=== PATIENT | female | born 1955 | race Caucasian/White ===

== ENCOUNTER 2019-06-14 08:56 | Inpatient (IN) ==
[2019-06-14] MEDS ORDERED: *HR* Promethazine 25 MG/ML VIAL IVP PRN (09:30)
[2019-06-14] MEDS ORDERED: diazePAM 5 MG TABLET PO ONE (09:30)
[2019-06-14] MEDS ORDERED: Famotidine 20 MG/2 ML VIAL IVP ONE (09:30)
[2019-06-14] MEDS ORDERED: *HR* FentaNYL (PF) 100 MCG/2 ML VIAL IVP PRN (09:30)
[2019-06-14] MEDS ORDERED: *HR* OxyCODONE Immed Rel 5 MG TABLET PO PRN ×2 (09:30→17:39)
[2019-06-14] MEDS ORDERED: *HR* HYDROmorphone (PF) 1 MG/ML SYRINGE IVP PRN (09:30)
[2019-06-14] MEDS ORDERED: Ondansetron ODT 4 MG TAB.RAPDIS SL ONE (09:30)
[2019-06-14] MEDS ORDERED: *HR* Midazolam HCl 2 MG/2 ML VIAL IVP PRN (09:30)
[2019-06-14] MEDS ORDERED: *HR* Meperidine 25 MG/ML SYRINGE IVP PRN (09:30)
[2019-06-14] MEDS ORDERED: Acetaminophen IV 500 MG/50 ML INFUS..BTL IVPB ONE (09:33)
[2019-06-14] MEDS ORDERED: CeFAZolin Syr 2,000MG/20 ML 2,000 MG/20 ML SYRINGE IVPB ONE (10:19)
[2019-06-14] MEDS ORDERED: MetroNIDAZOLE 500 MG/100 ML 500 MG/100 ML BAG IVPB ONE (10:20)
[2019-06-14] MEDS ORDERED: *HR* Succinylcholine 200 MG/10 ML VIAL IVP ONE (10:27)
[2019-06-14] MEDS ORDERED: Ondansetron 4 MG/2 ML VIAL ONE (10:27)
[2019-06-14] MEDS ORDERED: Lidocaine -MPF 2% 2 ML VIAL ONE (10:27)
[2019-06-14] MEDS ORDERED: Dexamethasone 4 MG/ML VIAL ONE (10:27)
[2019-06-14] MEDS ORDERED: *HR* Rocuronium Bromide 50 MG/5 ML VIAL ONE ×3 (10:27→15:45)
[2019-06-14] MEDS ORDERED: *HR* FentaNYL (PF) 100 MCG/2 ML VIAL ONE ×2 (10:28→12:07)
[2019-06-14] MEDS ORDERED: *HR* Propofol 200 MG/20 ML VIAL IVP ONE (10:28)
[2019-06-14] MEDS ORDERED: Ringers Solution, Lactated 1,000 ML IVC SCH (10:30)
[2019-06-14] MEDS ORDERED: Isovue-300 50ML VIAL ONE (11:07)
[2019-06-14] MEDS ORDERED: Naloxone 0.4 MG/ML INJ IVP PRN (17:39)
[2019-06-14] MEDS ORDERED: Ondansetron 4 MG/2 ML VIAL IVP PRN (17:39)
[2019-06-14] MEDS: traMADol 50 MG TABLET PO PRN (18:55)
[2019-06-14] MEDS: D5% in 0.45% NACL 1,000 ML IVC SCH (18:58)
[2019-06-15] MEDS: traMADol 50 MG TABLET PO PRN (04:44)
[2019-06-15] MEDS: D5% in 0.45% NACL 1,000 ML IVC SCH (21:01)
[2019-06-15] MEDS: *HR* Heparin 5,000 UNIT/ML VIAL SQ SCH (21:12)
[2019-06-16] MEDS: *HR* Heparin 5,000 UNIT/ML VIAL SQ SCH ×4 (00:07→17:08)
[2019-06-16] MEDS: traMADol 50 MG TABLET PO PRN (09:36)
[2019-06-17] MEDS: *HR* Heparin 5,000 UNIT/ML VIAL SQ SCH ×2 (00:20→08:59)
[2019-06-17 05:12] VITALS: BP 130/62
== END 2019-06-17 14:39 | disposition home or self-care (01) | DRG 330 ==
LOC: SAMDAY 08:56 → 3ANU 17:37
PROVIDERS: ADMIT Surgery; ATTEND Surgery

== ENCOUNTER 2019-09-25 14:29 | Inpatient (IN) ==
[2019-09-25] MEDS ORDERED: 0.9 % Sodium Chloride 1,000 ML IVC ONE (15:23)
[2019-09-25 15:58] LABS: Hematocrit 41.9 % (35.3-44.9); Hemoglobin 14.6 g/dL (11.5-15.4); Mean Corpuscular HGB Conc 34.8 g/dL (31.6-35.5); Mean Corpuscular Hemoglobin 27.4 pg (28.0-33.3); Mean Corpuscular Volume 78.6 fL (83.0-100.0); Mean Platelet Volume 9.2 fL (9.4-12.4); Platelet Count 235 K/mcL (140-400); Red Blood Count 5.33 M/mcL (3.82-4.97); Red Cell Distribution Width 15.3 % (11.5-14.5)
[2019-09-25 16:17] LABS: Alanine Aminotransferase 37 Units/L (7-52); Albumin 2.9 g/dL (3.5-5.7); Albumin/Globulin Ratio 1.1 (1.1-2.2); Alkaline Phosphatase 61 Units/L (34-104); Aspartate Amino Transferase 31 Units/L (13-39); BUN/Creatinine Ratio 27 (6-26); Bilirubin,Direct 0.2 mg/dL (0.0-0.2); Bilirubin,Indirect 0.5 mg/dL (0.0-1.0); Bilirubin,Total 0.7 mg/dL (0.3-1.0); Blood Urea Nitrogen 23 mg/dL (8-23); Calcium 8.7 mg/dL (8.6-10.3); Carbon Dioxide 21 mEq/L (23-29); Chloride 103 mEq/L (98-107); Globulin 2.6 g/dL (2.4-3.5); Glucose 176 mg/dL (70-105); Lipase 12 Units/L (11-82); Osmolality,Calculated 284 (280-300); Potassium 2.7 mEq/L (3.5-5.1); Sodium 133 mEq/L (136-145); Total Protein 5.5 g/dL (6.4-8.9); eGFR For African Americans > 60 (> 60); eGFR For Non-African Americans > 60 (> 60)
[2019-09-25] MEDS ORDERED: Piperacillin/Tazobactam 3.375 GM in 0.9 % Sodium Chloride Mini Bag 100 ML IVPB ONE ×2 (16:28→16:51)
[2019-09-25 16:35] LABS: Bacteria,Urine None Seen per hpf (None-Few); Bilirubin,Urine Negative (Negative); Blood,Urine Negative (Negative); Clarity,Urine Clear (Clear); Color,Urine Dark Yellow (Yellow); Glucose,Urine (UA) Normal (Normal); Hyaline Casts,Urine Few per lpf (None-Few); Ketones,Urine Negative (Negative); Leukocyte Esterase,Urine Negative (Negative); Nitrite,Urine Negative (Negative); Protein,Urine 30 mg/dL (Neg-Trace); Specific Gravity,Urine 1.026 (1.010-1.025); Squamous Epithelial Cell,Urine Many per lpf (None-Few); Urobilinogen,Urine Normal (Normal)
[2019-09-25] MEDS ORDERED: *HR* Propofol 200 MG/20 ML VIAL IVP ONE (17:14)
[2019-09-25] MEDS ORDERED: *HR* FentaNYL (PF) 100 MCG/2 ML VIAL ONE (17:14)
[2019-09-25] MEDS ORDERED: *HR* Succinylcholine 200 MG/10 ML VIAL IVP ONE (17:15)
[2019-09-25] MEDS ORDERED: *HR* Rocuronium Bromide 50 MG/5 ML VIAL ONE (17:15)
[2019-09-25] MEDS ORDERED: Lidocaine -MPF 2% 2 ML VIAL ONE (17:15)
[2019-09-25] MEDS ORDERED: *HR* OxyCODONE Immed Rel 5 MG TABLET PO PRN (17:27)
[2019-09-25] MEDS ORDERED: Ondansetron 4 MG/2 ML VIAL IVP ONE (17:27)
[2019-09-25] MEDS ORDERED: *HR* HYDROmorphone (PF) 1 MG/ML SYRINGE IVP PRN (17:27)
[2019-09-25] MEDS ORDERED: Acetaminophen IV 0 MG/0 ML INFUS..BTL ONE (17:47)
[2019-09-25] MEDS ORDERED: Naloxone 0.4 MG/ML INJ IVP PRN (18:30)
[2019-09-25] MEDS: D5% in 0.45% NACL w KCl 20 MEQ/1,000 ML MLS IVC SCH (19:49)
[2019-09-26] MEDS: D5% in 0.45% NACL w KCl 20 MEQ/1,000 ML MLS IVC SCH ×2 (04:40→23:40)
[2019-09-26 05:43] LABS: Basophils # 0.1 K/mcL (0.0-0.2); Basophils % 0.6 %; Eosinophils # 0.4 K/mcL (0.0-0.6); Hematocrit 37.4 % (35.3-44.9); Hemoglobin 13.1 g/dL (11.5-15.4); Immature Granulocytes % 0.4 % (0-4); Lymphocytes % 24.2 %; Mean Corpuscular Hemoglobin 27.7 pg (28.0-33.3); Mean Corpuscular Volume 79.1 fL (83.0-100.0); Mean Platelet Volume 8.5 fL (9.4-12.4); Monocytes # 0.7 K/mcL (0.0-1.3); Monocytes % 8.5 %; Neutrophils # 5.1 K/mcL (1.6-8.9); Platelet Count 197 K/mcL (140-400); Red Blood Count 4.73 M/mcL (3.82-4.97); Red Cell Distribution Width 15.4 % (11.5-14.5); Segmented Neutrophils % 61.3 %; White Blood Count 8.4 K/mcL (4.3-11.1)
[2019-09-26 06:00] LABS: BUN/Creatinine Ratio 25 (6-26); Blood Urea Nitrogen 18 mg/dL (8-23); Carbon Dioxide 20 mEq/L (23-29); Chloride 104 mEq/L (98-107); Glucose 188 mg/dL (70-105); Magnesium 1.5 mg/dL (1.6-2.6); Osmolality,Calculated 285 (280-300); Phosphorous 2.3 mg/dL (2.7-4.5); Potassium 2.6 mEq/L (3.5-5.1); Sodium 134 mEq/L (136-145); eGFR For African Americans > 60 (> 60); eGFR For Non-African Americans > 60 (> 60)
[2019-09-26] MEDS ORDERED: *HR* Propofol 200 MG/20 ML VIAL IVP ONE (10:00)
[2019-09-26] MEDS ORDERED: Lidocaine -MPF 2% 2 ML VIAL ONE (10:02)
[2019-09-26] MEDS: Fluconazole 100 MG TABLET PO SCH (14:14)
[2019-09-26] MEDS: Sucralfate 1 GM TABLET PO SCH ×3 (14:15→21:04)
[2019-09-26] MEDS: Nystatin SUSP 5 ML UD.LIQ PO SCH ×3 (14:16→21:04)
[2019-09-26] MEDS ORDERED: Potassium Chloride 40 MEQ, Lidocaine 1% 2 ML in 0.9 % Sodium Chloride 500 ML IVPB ONE (15:33)
[2019-09-27] MEDS: D5% in 0.45% NACL w KCl 20 MEQ/1,000 ML MLS IVC SCH (00:51)
[2019-09-27] MEDS ORDERED: Potassium Chloride 40 MEQ, Lidocaine 1% 2 ML in 0.9 % Sodium Chloride 500 ML IVPB ONE (07:08)
[2019-09-27] MEDS ORDERED: Potassium Chloride Elixir 20 MEQ/15 ML UDC PO ONE (07:08)
[2019-09-27 08:34] LABS: BUN/Creatinine Ratio 13 (6-26); Blood Urea Nitrogen 8 mg/dL (8-23); Calcium 8.1 mg/dL (8.6-10.3); Carbon Dioxide 21 mEq/L (23-29); Chloride 106 mEq/L (98-107); Glucose 151 mg/dL (70-105); Osmolality,Calculated 283 (280-300); Potassium 3.5 mEq/L (3.5-5.1); Sodium 136 mEq/L (136-145); eGFR For African Americans > 60 (> 60); eGFR For Non-African Americans > 60 (> 60)
[2019-09-27] MEDS: Ondansetron 4 MG/2 ML VIAL IVP PRN (10:37)
[2019-09-27] MEDS: Sucralfate 1 GM TABLET PO SCH (10:42)
[2019-09-27] MEDS: Nystatin SUSP 5 ML UD.LIQ PO SCH ×4 (11:22→21:43)
[2019-09-27] MEDS: Fluconazole 100 MG TABLET PO SCH (11:23)
[2019-09-28] MEDS: Fluconazole 100 MG TABLET PO SCH (10:24)
[2019-09-28] MEDS: Nystatin SUSP 5 ML UD.LIQ PO SCH ×4 (10:24→21:11)
[2019-09-29] MEDS: Ondansetron 4 MG/2 ML VIAL IVP PRN (01:50)
[2019-09-29] MEDS: Nystatin SUSP 5 ML UD.LIQ PO SCH ×4 (10:17→21:51)
[2019-09-29] MEDS: Fluconazole 100 MG TABLET PO SCH (10:17)
[2019-09-30] MEDS: Fluconazole 100 MG TABLET PO SCH (08:05)
[2019-09-30] MEDS: Nystatin SUSP 5 ML UD.LIQ PO SCH ×4 (08:05→21:11)
[2019-10-01 07:32] VITALS: BP 137/90
[2019-10-01] MEDS: Ondansetron 4 MG/2 ML VIAL IVP PRN (10:01)
[2019-10-01] MEDS: Fluconazole 100 MG TABLET PO SCH (10:03)
[2019-10-01] MEDS: Nystatin SUSP 5 ML UD.LIQ PO SCH (10:04)
[2019-10-01] MEDS ORDERED: Ondansetron ODT 4 MG TAB.RAPDIS SL PRN (10:11)
[2019-10-01] MEDS ORDERED: Scopolamine Patch 1.5 MG PATCH.TD72 TD SCH (10:15)
== END 2019-10-01 14:17 | disposition home health service (06) | DRG 368 ==
LOC: EMEROOARM 14:29 → 3ANU 17:04
PROVIDERS: ADMIT Surgery; ATTEND Surgery
PROC: ENDOEBX (2019-09-26 10:00)

== ENCOUNTER 2019-10-02 18:39 | Inpatient (IN) ==
[2019-10-02] MEDS ORDERED: Naloxone 0.4 MG/ML INJ IVP PRN (22:11)
[2019-10-02] MEDS ORDERED: Ondansetron 4 MG/2 ML VIAL IVP PRN (22:11)
[2019-10-02] MEDS ORDERED: Potassium Chloride 40 MEQ in D5% in 0.9% NACL 1,000 ML IVC SCH (22:15)
[2019-10-02 22:51] LABS: Basophils % 0.1 %; Eosinophils % 0.3 %; Hematocrit 46.3 % (35.3-44.9); Immature Granulocytes % 12.5 % (0-4); Lymphocytes # 1.7 K/mcL (0.6-4.6); Lymphocytes % 15.4 %; Mean Corpuscular HGB Conc 34.8 g/dL (31.6-35.5); Mean Corpuscular Volume 77.6 fL (83.0-100.0); Neutrophils # 5.9 K/mcL (1.6-8.9); Nucleated Red Blood Cells 0.5 /100 WBC (0); Platelet Count 337 K/mcL (140-400); Red Blood Count 5.97 M/mcL (3.82-4.97); Segmented Neutrophils % 53.7 %
[2019-10-02 22:51] LABS: VBG Ionized Calcium 1.56 mmol/L (1.15-1.35)
[2019-10-02 22:55] LABS: Hemoglobin 16.1 g/dL (11.5-15.4)
[2019-10-02] MEDS: Potassium Chloride 40 MEQ in D5% in 0.9% NACL 1,000 ML IVC SCH (23:03)
[2019-10-02] MEDS ORDERED: 0.9 % Sodium Chloride 1,000 ML IVC ONE (23:13)
[2019-10-02 23:22] LABS: Troponin I 0.04 ng/mL (< 0.04)
[2019-10-02 23:27] LABS: Platelet Estimate Normal (Normal)
[2019-10-03] MEDS ORDERED: Fluconazole 100 MG TABLET PO SCH (00:30)
[2019-10-03] MEDS ORDERED: Nystatin SUSP 5 ML UD.LIQ PO SCH (00:30)
[2019-10-03 02:14] LABS: Bilirubin,Urine Negative (Negative); Blood,Urine Negative (Negative); Clarity,Urine Cloudy (Clear); Color,Urine Yellow (Yellow); Glucose,Urine (UA) Normal (Normal); Ketones,Urine Negative (Negative); Leukocyte Esterase,Urine Negative (Negative); Nitrite,Urine Negative (Negative); Protein,Urine 30 mg/dL (Neg-Trace); Specific Gravity,Urine 1.022 (1.010-1.025); Urobilinogen,Urine Normal (Normal)
[2019-10-03 02:16] LABS: Hyaline Casts,Urine Few per lpf (None-Few); RBC,Urine 0-3 per hpf (0-3); Squamous Epithelial Cell,Urine Many per lpf (None-Few)
[2019-10-03 02:24] LABS: Basophils % 0.1 %; Eosinophils % 0.2 %; Hematocrit 41.6 % (35.3-44.9); Hemoglobin 14.6 g/dL (11.5-15.4); Immature Granulocytes % 11.7 % (0-4); Lymphocytes # 1.7 K/mcL (0.6-4.6); Lymphocytes % 13.8 %; Mean Corpuscular HGB Conc 35.1 g/dL (31.6-35.5); Mean Corpuscular Hemoglobin 27.5 pg (28.0-33.3); Mean Corpuscular Volume 78.3 fL (83.0-100.0); Monocytes # 2.1 K/mcL (0.0-1.3); Monocytes % 16.9 %; Nucleated Red Blood Cells 0.4 /100 WBC (0); Platelet Count 301 K/mcL (140-400); Red Blood Count 5.31 M/mcL (3.82-4.97); Red Cell Distribution Width 16.6 % (11.5-14.5); Segmented Neutrophils % 57.3 %; White Blood Count 12.6 K/mcL (4.3-11.1)
[2019-10-03 02:26] LABS: Neutrophils # 7.2 K/mcL (1.6-8.9)
[2019-10-03 02:32] LABS: Bacteria,Urine Few per hpf (None-Few)
[2019-10-03] MEDS: Fluconazole 200 MG/100 ML 200 MG/100 ML BAG IVPB SCH (02:34)
[2019-10-03 02:43] LABS: Albumin 2.4 g/dL (3.5-5.7); Albumin/Globulin Ratio 0.8 (1.1-2.2); Bilirubin,Total 0.4 mg/dL (0.3-1.0); Calcium 10.2 mg/dL (8.6-10.3); Magnesium 2.5 mg/dL (1.6-2.6); Phosphorous 2.6 mg/dL (2.7-4.5); Potassium 2.3 mEq/L (3.5-5.1); Total Protein 5.4 g/dL (6.4-8.9); Troponin I 0.05 ng/mL (< 0.04)
[2019-10-03 03:52] LABS: Platelet Estimate Normal (Normal)
[2019-10-03 04:56] LABS: Albumin 2.1 g/dL (3.5-5.7); Albumin/Globulin Ratio 0.8 (1.1-2.2); Bilirubin,Total 0.3 mg/dL (0.3-1.0); Calcium 9.6 mg/dL (8.6-10.3); Globulin 2.6 g/dL (2.4-3.5); Potassium 2.4 mEq/L (3.5-5.1); Total Protein 4.7 g/dL (6.4-8.9)
[2019-10-03] MEDS: *HR* Heparin 5,000 UNIT/ML VIAL SQ SCH ×3 (06:30→21:23)
[2019-10-03] MEDS: Piperacillin/Tazobactam 3.375 GM in 0.9 % Sodium Chloride Mini Bag 100 ML IVPB SCH ×2 (08:03→16:44)
[2019-10-03] MEDS ORDERED: Potassium Phosphate 44 MEQ in 0.9 % Sodium Chloride 250 ML IVPB ONE (09:45)
[2019-10-03] MEDS: Potassium Chloride 40 MEQ in D5% in 0.9% NACL 1,000 ML IVC SCH ×2 (10:39→21:22)
[2019-10-03] MEDS ORDERED: Haloperidol Lactate 5 MG/ML VIAL IVP PRN (11:09)
[2019-10-03] MEDS ORDERED: Saliva Stimulant 100ml BOTTLE PO PRN (11:11)
[2019-10-03] MEDS: Pantoprazole 40 MG VIAL IVP SCH (14:49)
[2019-10-03] MEDS: Nystatin SUSP 5 ML UD.LIQ PO SCH ×3 (14:50→21:24)
[2019-10-03 16:39] LABS: Calcium 9.1 mg/dL (8.6-10.3); Phosphorous 3.2 mg/dL (2.7-4.5)
[2019-10-04] MEDS: Fluconazole 200 MG/100 ML 200 MG/100 ML BAG IVPB SCH ×2 (00:36→23:57)
[2019-10-04] MEDS: Piperacillin/Tazobactam 3.375 GM in 0.9 % Sodium Chloride Mini Bag 100 ML IVPB SCH ×4 (00:38→23:57)
[2019-10-04 04:12] LABS: Hematocrit 34.5 % (35.3-44.9); Mean Corpuscular HGB Conc 33.3 g/dL (31.6-35.5); Mean Corpuscular Hemoglobin 27.7 pg (28.0-33.3); Mean Corpuscular Volume 83.1 fL (83.0-100.0); Mean Platelet Volume 9.2 fL (9.4-12.4); Nucleated Red Blood Cells 0.1 /100 WBC (0); Platelet Count 236 K/mcL (140-400); Red Blood Count 4.15 M/mcL (3.82-4.97); Red Cell Distribution Width 17.4 % (11.5-14.5); White Blood Count 16.2 K/mcL (4.3-11.1)
[2019-10-04 04:15] LABS: Hemoglobin 11.5 g/dL (11.5-15.4)
[2019-10-04 04:34] LABS: Calcium 9.4 mg/dL (8.6-10.3); Magnesium 2.1 mg/dL (1.6-2.6); Phosphorous 2.1 mg/dL (2.7-4.5); Potassium 2.9 mEq/L (3.5-5.1)
[2019-10-04 04:42] LABS: Lymphocytes # 2.6 K/mcL (0.6-4.6); Monocytes # 0.3 K/mcL (0.0-1.3); Neutrophils # 12.6 K/mcL (1.6-8.9)
[2019-10-04 04:43] LABS: Platelet Estimate Normal (Normal); Smudge Cells Present (Not Present)
[2019-10-04] MEDS: *HR* Heparin 5,000 UNIT/ML VIAL SQ SCH ×3 (06:38→20:47)
[2019-10-04] MEDS ORDERED: Potassium Chloride Elixir 20 MEQ/15 ML UDC PO SCH (09:00)
[2019-10-04] MEDS: Nystatin SUSP 5 ML UD.LIQ PO SCH ×4 (10:46→20:30)
[2019-10-04] MEDS: Potassium Chloride 40 MEQ in D5% in 0.9% NACL 1,000 ML IVC SCH (10:46)
[2019-10-04] MEDS: Pantoprazole 40 MG VIAL IVP SCH (10:46)
[2019-10-04] MEDS: Potassium Phosphate 44 MEQ in 0.9 % Sodium Chloride 250 ML IVPB ONE ×2 (10:48→14:56)
[2019-10-04] MEDS ORDERED: Potassium Chloride 20 MEQ, Lidocaine 1% 2 ML in 0.9 % Sodium Chloride 250 ML IVPB ONE (12:00)
[2019-10-04] MEDS: Insulin LISPRO 300 UNITS/3 ML VIAL SQ SCH ×4 (12:05→23:58)
[2019-10-04] MEDS ORDERED: D10% in Water 500 ML IVC PRN (13:09)
[2019-10-04 15:45] LABS: Magnesium 1.9 mg/dL (1.6-2.6); Phosphorous 3.8 mg/dL (2.7-4.5); Potassium 3.5 mEq/L (3.5-5.1)
[2019-10-04] MEDS ORDERED: Insulin LISPRO 300 UNITS/3 ML VIAL SQ SCH (16:00)
[2019-10-04] MEDS: Thiamine (B-1) 100 MG in 0.9 % Sodium Chloride 50 ML IVPB SCH (16:56)
[2019-10-04] MEDS ORDERED: Clinimix E 5%-15% SOLUTION 2,000 ML with MVI, adult with vitamin K 10 ML IVC SCH (17:00)
[2019-10-05] MEDS: Potassium Chloride 40 MEQ in D5% in 0.9% NACL 1,000 ML IVC SCH ×3 (02:51→13:03)
[2019-10-05] MEDS: Insulin LISPRO 300 UNITS/3 ML VIAL SQ SCH ×5 (04:15→21:46)
[2019-10-05 04:48] LABS: Basophils % 0.1 %; Eosinophils # 0.7 K/mcL (0.0-0.6); Eosinophils % 3.9 %; Hematocrit 32.5 % (35.3-44.9); Hemoglobin 10.7 g/dL (11.5-15.4); Immature Granulocytes % 20.1 % (0-4); Lymphocytes % 17.1 %; Mean Corpuscular HGB Conc 32.9 g/dL (31.6-35.5); Mean Corpuscular Hemoglobin 26.8 pg (28.0-33.3); Mean Corpuscular Volume 81.5 fL (83.0-100.0); Mean Platelet Volume 9.1 fL (9.4-12.4); Monocytes # 1.6 K/mcL (0.0-1.3); Neutrophils # 8.7 K/mcL (1.6-8.9); Nucleated Red Blood Cells 0.1 /100 WBC (0); Platelet Count 221 K/mcL (140-400); Red Blood Count 3.99 M/mcL (3.82-4.97); Red Cell Distribution Width 18.3 % (11.5-14.5); Segmented Neutrophils % 49.8 %; White Blood Count 17.5 K/mcL (4.3-11.1)
[2019-10-05 05:03] LABS: Calcium 8.5 mg/dL (8.6-10.3); Potassium 3.4 mEq/L (3.5-5.1)
[2019-10-05] MEDS: *HR* Heparin 5,000 UNIT/ML VIAL SQ SCH ×3 (05:17→21:41)
[2019-10-05 05:21] LABS: Platelet Estimate Normal (Normal); Reactive Lymphocytes Present (Not Present)
[2019-10-05] MEDS: Pantoprazole 40 MG VIAL IVP SCH (09:24)
[2019-10-05] MEDS: Nystatin SUSP 5 ML UD.LIQ PO SCH ×4 (09:24→21:41)
[2019-10-05] MEDS: Piperacillin/Tazobactam 3.375 GM in 0.9 % Sodium Chloride Mini Bag 100 ML IVPB SCH ×2 (09:24→16:57)
[2019-10-05] MEDS: Thiamine (B-1) 100 MG in 0.9 % Sodium Chloride 50 ML IVPB SCH (09:26)
[2019-10-05] MEDS ORDERED: Potassium Chloride 40 MEQ, Lidocaine 1% 2 ML in D5% in Water 500 ML IVPB ONE (16:20)
[2019-10-05] MEDS ORDERED: Clinimix E 5%-15% SOLUTION 2,000 ML with MVI, adult with vitamin K 10 ML IVC SCH (17:00)
[2019-10-05] MEDS: Sodium Bicarbonate 150 MEQ in D5% in Water 1,000 ML IVC SCH (17:28)
[2019-10-06] MEDS: Piperacillin/Tazobactam 3.375 GM in 0.9 % Sodium Chloride Mini Bag 100 ML IVPB SCH ×3 (02:47→15:48)
[2019-10-06] MEDS: Fluconazole 200 MG/100 ML 200 MG/100 ML BAG IVPB SCH (02:48)
[2019-10-06] MEDS: Insulin LISPRO 300 UNITS/3 ML VIAL SQ SCH ×6 (04:18→21:56)
[2019-10-06] MEDS: *HR* Heparin 5,000 UNIT/ML VIAL SQ SCH ×3 (06:42→21:54)
[2019-10-06] MEDS: Pantoprazole 40 MG VIAL IVP SCH (08:34)
[2019-10-06] MEDS: Thiamine (B-1) 100 MG in 0.9 % Sodium Chloride 50 ML IVPB SCH (08:35)
[2019-10-06] MEDS: Nystatin SUSP 5 ML UD.LIQ PO SCH ×4 (08:35→21:55)
[2019-10-06 16:38] LABS: BUN/Creatinine Ratio 14 (6-26); Blood Urea Nitrogen 14 mg/dL (8-23); Calcium 8.4 mg/dL (8.6-10.3); Carbon Dioxide 33 mEq/L (23-29); Chloride 101 mEq/L (98-107); Glucose 203 mg/dL (70-105); Magnesium 1.1 mg/dL (1.6-2.6); Osmolality,Calculated 292 (280-300); Phosphorous 2.4 mg/dL (2.7-4.5); Potassium 2.9 mEq/L (3.5-5.1); Sodium 138 mEq/L (136-145); eGFR For African Americans > 60 (> 60); eGFR For Non-African Americans 55 (> 60)
[2019-10-06] MEDS: Sodium Bicarbonate 150 MEQ in D5% in Water 1,000 ML IVC SCH ×2 (16:41→17:00)
[2019-10-06] MEDS ORDERED: Clinimix E 5%-15% SOLUTION 2,000 ML with MVI, adult with vitamin K 10 ML IVC SCH (17:00)
[2019-10-06] MEDS ORDERED: Potassium Chloride 40 MEQ, Lidocaine 1% 2 ML in D5% in Water 500 ML IVPB ONE (17:27)
[2019-10-07] MEDS: Piperacillin/Tazobactam 3.375 GM in 0.9 % Sodium Chloride Mini Bag 100 ML IVPB SCH ×3 (01:41→16:10)
[2019-10-07] MEDS: Fluconazole 200 MG/100 ML 200 MG/100 ML BAG IVPB SCH (01:42)
[2019-10-07] MEDS: Insulin LISPRO 300 UNITS/3 ML VIAL SQ SCH ×6 (01:44→21:13)
[2019-10-07 06:55] LABS: BUN/Creatinine Ratio 14 (6-26); Blood Urea Nitrogen 14 mg/dL (8-23); Calcium 8.4 mg/dL (8.6-10.3); Carbon Dioxide 40 mEq/L (23-29); Chloride 95 mEq/L (98-107); Glucose 97 mg/dL (70-105); Magnesium 1.6 mg/dL (1.6-2.6); Osmolality,Calculated 292 (280-300); Phosphorous 2.9 mg/dL (2.7-4.5); Potassium 3.1 mEq/L (3.5-5.1); Sodium 141 mEq/L (136-145); eGFR For African Americans > 60 (> 60); eGFR For Non-African Americans 55 (> 60)
[2019-10-07] MEDS: *HR* Heparin 5,000 UNIT/ML VIAL SQ SCH ×3 (08:26→21:14)
[2019-10-07] MEDS: Nystatin SUSP 5 ML UD.LIQ PO SCH ×4 (08:32→21:14)
[2019-10-07] MEDS: Pantoprazole 40 MG VIAL IVP SCH (08:32)
[2019-10-07] MEDS ORDERED: D10% in Water 500 ML IVC PRN (11:44)
[2019-10-07 12:50] LABS: Magnesium 2.6 mg/dL (1.6-2.6); Phosphorous 4.8 mg/dL (2.7-4.5); Potassium 4.3 mEq/L (3.5-5.1)
[2019-10-07 15:34] LABS: BUN/Creatinine Ratio 14 (6-26); Blood Urea Nitrogen 14 mg/dL (8-23); Calcium 8.7 mg/dL (8.6-10.3); Carbon Dioxide 37 mEq/L (23-29); Chloride 91 mEq/L (98-107); Glucose 235 mg/dL (70-105); Magnesium 2.1 mg/dL (1.6-2.6); Osmolality,Calculated 288 (280-300); Potassium 3.4 mEq/L (3.5-5.1); Sodium 135 mEq/L (136-145); eGFR For African Americans > 60 (> 60); eGFR For Non-African Americans 54 (> 60)
[2019-10-07] MEDS ORDERED: Clinimix E 5%-15% SOLUTION 2,000 ML with MVI, adult with vitamin K 10 ML IVC SCH ×2 (17:00)
[2019-10-08] MEDS: Fluconazole 200 MG/100 ML 200 MG/100 ML BAG IVPB SCH
[2019-10-08] MEDS: Insulin LISPRO 300 UNITS/3 ML VIAL SQ SCH ×6 (01:51→21:13)
[2019-10-08] MEDS: *HR* Heparin 5,000 UNIT/ML VIAL SQ SCH ×3 (06:10→21:11)
[2019-10-08 06:45] LABS: VBG Ionized Calcium 1.19 mmol/L (1.15-1.35)
[2019-10-08 07:09] LABS: Calcium 8.6 mg/dL (8.6-10.3); Magnesium 1.9 mg/dL (1.6-2.6); Phosphorous 3.5 mg/dL (2.7-4.5); Potassium 3.8 mEq/L (3.5-5.1)
[2019-10-08] MEDS: Piperacillin/Tazobactam 3.375 GM in 0.9 % Sodium Chloride Mini Bag 100 ML IVPB SCH ×2 (08:30)
[2019-10-08] MEDS: Nystatin SUSP 5 ML UD.LIQ PO SCH ×4 (08:30→21:12)
[2019-10-08] MEDS: Pantoprazole 40 MG VIAL IVP SCH (08:30)
[2019-10-08] MEDS ORDERED: Potassium Chloride 20 MEQ, Lidocaine 1% 2 ML in 0.9 % Sodium Chloride 250 ML IVPB ONE (10:57)
[2019-10-08] MEDS ORDERED: Clinimix E 5%-15% SOLUTION 2,000 ML with MVI, adult with vitamin K 10 ML IVC SCH (11:12)
[2019-10-09] MEDS ORDERED: MetroNIDAZOLE 500 MG/100 ML 500 MG/100 ML BAG IVPB SCH
[2019-10-09] MEDS: Insulin LISPRO 300 UNITS/3 ML VIAL SQ SCH ×3 (00:43→09:27)
[2019-10-09] MEDS: *HR* Heparin 5,000 UNIT/ML VIAL SQ SCH ×3 (05:54→20:43)
[2019-10-09] MEDS ORDERED: Aminoglycoside Consult 1 EACH MC ONE (08:01)
[2019-10-09 08:18] LABS: Calcium 8.4 mg/dL (8.6-10.3); Magnesium 1.8 mg/dL (1.6-2.6); Phosphorous 3.2 mg/dL (2.7-4.5); Potassium 3.5 mEq/L (3.5-5.1)
[2019-10-09] MEDS: metroNIDAZOLE 500 MG TABLET PO SCH ×3 (09:39→20:43)
[2019-10-09] MEDS: Pantoprazole 40 MG VIAL IVP SCH (09:39)
[2019-10-09] MEDS: Nystatin SUSP 5 ML UD.LIQ PO SCH ×4 (09:39→20:43)
[2019-10-09] MEDS ORDERED: Isovue-370 500 ML BOTTLE IVP ONE (16:46)
[2019-10-09] MEDS ORDERED: Isovue-370 500 ML BOTTLE PO ONE (19:26)
[2019-10-10] MEDS: *HR* Heparin 5,000 UNIT/ML VIAL SQ SCH ×3 (05:36→21:33)
[2019-10-10] MEDS: metroNIDAZOLE 500 MG TABLET PO SCH ×3 (08:53→21:33)
[2019-10-10] MEDS: Nystatin SUSP 5 ML UD.LIQ PO SCH ×4 (08:53→21:33)
[2019-10-10 09:19] LABS: Calcium 8.6 mg/dL (8.6-10.3); Potassium 3.6 mEq/L (3.5-5.1)
[2019-10-10 10:19] LABS: Basophils # 0.1 K/mcL (0.0-0.2); Basophils % 0.7 %; Eosinophils # 0.4 K/mcL (0.0-0.6); Eosinophils % 4.2 %; Hematocrit 33.9 % (35.3-44.9); Hemoglobin 10.6 g/dL (11.5-15.4); Immature Granulocytes % 1.2 % (0-4); Lymphocytes % 18.9 %; Mean Corpuscular HGB Conc 31.3 g/dL (31.6-35.5); Mean Corpuscular Hemoglobin 26.3 pg (28.0-33.3); Mean Corpuscular Volume 84.1 fL (83.0-100.0); Mean Platelet Volume 9.9 fL (9.4-12.4); Monocytes # 1.2 K/mcL (0.0-1.3); Monocytes % 11.9 %; Neutrophils # 6.6 K/mcL (1.6-8.9); Platelet Count 166 K/mcL (140-400); Red Blood Count 4.03 M/mcL (3.82-4.97); Red Cell Distribution Width 17.6 % (11.5-14.5); Segmented Neutrophils % 63.1 %; White Blood Count 10.4 K/mcL (4.3-11.1)
[2019-10-11] MEDS: *HR* Heparin 5,000 UNIT/ML VIAL SQ SCH (05:30)
[2019-10-11] MEDS: Nystatin SUSP 5 ML UD.LIQ PO SCH (08:49)
[2019-10-11] MEDS: metroNIDAZOLE 500 MG TABLET PO SCH (08:50)
[2019-10-11 12:24] VITALS: BP 126/79
== END 2019-10-11 14:36 | disposition home health service (06) | DRG 393 ==
LOC: 3ANU → SUATTDRO 10-03 05:38
PROVIDERS: ADMIT Pharmacist; ATTEND Internal Medicine